=== PATIENT | male | born 1960 | race Asian ===

== ENCOUNTER 2021-07-08 12:27 | Emergency (ER) | payer MEDICARE, MEDICAID ==
[~2021-07-08] VITALS: Ht 167.6 cm; Wt 56.8 kg
[2021-07-08 14:44] LABS: BASOPHILS % (AUTO) 0.2 % (0.0-2.0); EOSINOPHILS % (AUTO) 0.5 % (1.0-6.0); HEMOGLOBIN 11.7 g/dL (13.5-17.5); LYMPHOCYTES # (AUTO) 0.8 K/uL (1.0-4.8); LYMPHOCYTES % (AUTO) 6.8 % (22.0-44.0); MEAN CORPUSCULAR HEMOGLOBIN 29.7 pg (26.0-34.0); MEAN CORPUSCULAR HGB CONC 33.3 G/dL (31.0-37.0); MEAN CORPUSCULAR VOLUME 89 fL (80-100); MONOCYTES # (AUTO) 0.5 K/uL (0.1-1.0); MONOCYTES % (AUTO) 4.6 % (2.0-9.0); NEUTROPHILS # (AUTO) 9.9 K/uL (1.8-7.7); PLATELET COUNT (AUTO) 277 K/uL (150-450); RED BLOOD CELL COUNT(AUTO) 3.93 MIL/uL (4.50-5.90); RED CELL DISTRIBUTION WIDTH 12.8 % (11.5-14.5)
[2021-07-08 14:58] LABS: NEUTROPHILS % (AUTO) 87.9 % (40.0-70.0)
[2021-07-08 15:13] LABS: COVID AG,FIA SOURCE NASOPHARYNGEAL
[2021-07-08 15:15] LABS: ANION GAP 10 mmol/L (8-16); CALCIUM, TOTAL 8.4 mg/dL (8.8-10.5); CARBON DIOXIDE 23 mmol/L (22-29); CHLORIDE 108 mmol/L (98-107); CREATININE 0.82 mg/dL (0.60-1.30); GLOMERULAR FILTR. RATE CALC > 60 mL/min (>60); GLUCOSE,RANDOM 107 mg/dL (70-110); SODIUM SERUM 141 mmol/L (136-145); UREA NITROGEN, BLOOD 10 mg/dL (7-18)
[2021-07-08 15:31] LABS: B-TYPE NATRIURETIC PEPTIDE 11 pg/mL (0-100)
[2021-07-08 15:39] LABS: ALANINE AMINOTRANSFERASE 24 U/L (12-78); ALBUMIN 2.8 g/dL (3.4-5.0); ALKALINE PHOSPHATASE 223 U/L (46-116); ASPARTATE AMINOTRANSFERASE 28 U/L (15-37); BILIRUBIN,TOTAL 0.1 mg/dL (0.1-1.0); CREATINE KINASE, TOTAL ONLY 197 U/L (39-308); TOTAL PROTEIN, SERUM 6.6 g/dL (6.4-8.2)
[2021-07-08 15:40] LABS: ABG BASE EXCESS -5.1 mmol/L (-2.0-3.0); ABG CARBOXYHEMOGLOBIN 0.5 % (0.0-1.5); ABG METHEMOGLOBIN 0.3 % (0.0-1.5); ABG OXYGEN CONTENT 15.9 mL/dL (15.0-23.0); ABG OXYGEN SATURATION 91.2 % (95.0-98.0); ABG OXYHEMOGLOBIN 90.5 % (94.0-100.0); ABG PCO2 31 mmHg (35-45); ABG PH 7.417 (7.35-7.450); ABG TOTAL HEMOGLOBIN 12.5 G/dL (12.0-18.0); O2 DEVICE,BLOOD GAS ROOM AIR (ROOM AIR); PO2, ARTERIAL BG 61.7 mmHg (79.0-87.0); SITE, BLOOD GAS RT RADIAL; SOURCE, BLOOD GAS ARTERIAL
[2021-07-08] MEDS ORDERED: AZITHROMYCIN 500 MG/NS 250 ML IV ONE (17:00)
[2021-07-08] MEDS ORDERED: ACETAMINOPHEN 500 MG TABLET PO ONE (17:00)
[2021-07-08] MEDS ORDERED: CefTRIAXone 1 GM/DEXTROSE 50 ML IV ONE (17:00)
[2021-07-08] MEDS ORDERED: SODIUM CHLORIDE 0.9% 100 ML ONE (17:10)
[2021-07-08] MEDS ORDERED: IOHEXOL 350 MG/ML 100 ML VIAL ONE (17:10)
[2021-07-08 18:03] VITALS: BP 134/85
== END 2021-07-08 18:55 | disposition left against medical advice (07) ==
LOC: EMS 12:33
DX: J96.01 Acute respiratory failure with hypoxia (principal); J18.9 Pneumonia, unspecified organism; F17.210 Nicotine dependence, cigarettes, uncomplicated; Z20.822 Contact with and (suspected) exposure to COVID-19
CPT/HCPCS: 71045; 71260; 80053; 82550; 82805; 83880; 84484; 85025; 85379; 87040; 87426; 93005; 96365; 99291; J0696; J7050; Q9967; U0003; 36415-L1; 36415-TC

== ENCOUNTER 2021-07-16 14:05 | Inpatient (IN) | payer MEDICARE, MEDICAID ==
[~2021-07-16] VITALS: Ht 177.8 cm; Wt 52.1 kg
[2021-07-16 14:45] LABS: ABG BASE EXCESS -3.7 mmol/L (-2.0-3.0); ABG CARBOXYHEMOGLOBIN 0.6 % (0.0-1.5); ABG METHEMOGLOBIN 0.1 % (0.0-1.5); ABG OXYGEN CONTENT 17.3 mL/dL (15.0-23.0); ABG OXYGEN SATURATION 91.2 % (95.0-98.0); ABG OXYHEMOGLOBIN 90.6 % (94.0-100.0); ABG PCO2 32 mmHg (35-45); ABG PH 7.428 (7.35-7.450); ABG TOTAL HEMOGLOBIN 13.6 G/dL (12.0-18.0); PO2, ARTERIAL BG 62.3 mmHg (79.0-87.0); SOURCE, BLOOD GAS ARTERIAL; TEMPERATURE, FAHRENHEIT, BG 98.6 FAHREN (96.0-98.6)
[2021-07-16] MEDS ORDERED: MethylPREDNISolone SOD SUCC 125 MG/2 ML VIAL IVP ONE (14:45)
[2021-07-16] MEDS ORDERED: ALBUTEROL SULFATE 5 MG/ML 20 ML NEB SOLN [BULK] NEB ONE (14:45)
[2021-07-16] MEDS ORDERED: IPRATROPIUM BROMIDE 0.5 MG/2.5 ML NEB SOLUTION NEB ONE (14:45)
[2021-07-16 14:46] LABS: SITE, BLOOD GAS LFT RADIAL
[2021-07-16 14:47] LABS: O2 DEVICE,BLOOD GAS NON REBREATHER (ROOM AIR)
[2021-07-16 14:54] LABS: BASOPHILS % (AUTO) 0.2 % (0.0-2.0); EOSINOPHILS % (AUTO) 0.1 % (1.0-6.0); HEMATOCRIT 38.7 % (41-53); HEMOGLOBIN 12.9 g/dL (13.5-17.5); LYMPHOCYTES # (AUTO) 0.3 K/uL (1.0-4.8); LYMPHOCYTES % (AUTO) 11.2 % (22.0-44.0); MEAN CORPUSCULAR HEMOGLOBIN 29.3 pg (26.0-34.0); MEAN CORPUSCULAR HGB CONC 33.3 G/dL (31.0-37.0); MEAN CORPUSCULAR VOLUME 88 fL (80-100); MONOCYTES # (AUTO) 0.3 K/uL (0.1-1.0); MONOCYTES % (AUTO) 12.8 % (2.0-9.0); NEUTROPHILS # (AUTO) 1.9 K/uL (1.8-7.7); NEUTROPHILS % (AUTO) 75.7 % (40.0-70.0); PLATELET COUNT (AUTO) 172 K/uL (150-450); RED BLOOD CELL COUNT(AUTO) 4.39 MIL/uL (4.50-5.90); RED CELL DISTRIBUTION WIDTH 13.2 % (11.5-14.5)
[2021-07-16 14:56] LABS: COVID AG,FIA SOURCE NASOPHARYNGEAL
[2021-07-16 15:14] LABS: ANION GAP 15 mmol/L (8-16); CALCIUM, TOTAL 7.8 mg/dL (8.8-10.5); CARBON DIOXIDE 20 mmol/L (22-29); CHLORIDE 99 mmol/L (98-107); CREATININE 1.17 mg/dL (0.60-1.30); GLOMERULAR FILTR. RATE CALC > 60 mL/min (>60); GLUCOSE,RANDOM 157 mg/dL (70-110); POTASSIUM 4.1 mmol/L (3.5-5.1); SODIUM SERUM 134 mmol/L (136-145); UREA NITROGEN, BLOOD 23 mg/dL (7-18)
[2021-07-16 15:37] LABS: B-TYPE NATRIURETIC PEPTIDE 21 pg/mL (0-100)
[2021-07-16 15:38] LABS: ALANINE AMINOTRANSFERASE 29 U/L (12-78); ALBUMIN 2.8 g/dL (3.4-5.0); ALKALINE PHOSPHATASE 171 U/L (46-116); ASPARTATE AMINOTRANSFERASE 76 U/L (15-37); BILIRUBIN,TOTAL 0.3 mg/dL (0.1-1.0); CREATINE KINASE, TOTAL ONLY 450 U/L (39-308); TOTAL PROTEIN, SERUM 6.9 g/dL (6.4-8.2)
[2021-07-16 15:44] LABS: INFLUENZA TYPE A NEGATIVE FOR TYPE A (NEGATIVE); INFLUENZA TYPE B NEGATIVE FOR TYPE B (NEGATIVE)
[2021-07-16] MEDS ORDERED: SODIUM CHLORIDE 0.9% 2,000 ML IV ONE (15:45)
[2021-07-16] MEDS ORDERED: AZITHROMYCIN 500 MG/NS 250 ML IV ONE (15:45)
[2021-07-16] MEDS ORDERED: CefTRIAXone 1 GM/DEXTROSE 50 ML IV ONE (15:45)
[2021-07-16 18:26] LABS: APPEARANCE,URINE CLEAR (CLEAR); BILIRUBIN,URINE NEGATIVE (NEGATIVE); GLUCOSE, URINE (UA) NEGATIVE (NEGATIVE); KETONES,URINE NEGATIVE (NEGATIVE); LEUKOCYTE ESTERASE ,URINE NEGATIVE (NEGATIVE); NITRATE,URINE NEGATIVE (NEGATIVE); OCCULT BLOOD,URINE NEGATIVE (NEGATIVE); PH,URINE 5.5 (5.0-8.0); PROTEIN,URINE SEE CONFIRM (NEGATIVE); UROBILINOGEN,URINE 0.2 mg/dL (<=1.0)
[2021-07-16 18:32] LABS: AMPHET/METH SCREEN,URINE NEGATIVE (NEGATIVE); BARBITURATE SCREEN, URINE NEGATIVE (NEGATIVE); BENZODIAZEPINES SCREEN,URINE NEGATIVE (NEGATIVE); CANNABINOID SCREEN,URINE NEGATIVE (NEGATIVE); COCAINE SCREEN,URINE NEGATIVE (NEGATIVE); METHADONE SCREEN, URINE NEGATIVE (NEGATIVE); OPIATE SCREEN,URINE NEGATIVE (NEGATIVE)
[2021-07-16 18:34] LABS: PHENCYCLIDINE SCREEN,URINE NEGATIVE (NEGATIVE)
[2021-07-16 18:36] LABS: SULFOSALICYLIC ACID,URINE 1+ (Negative)
[2021-07-16 18:37] LABS: BACTERIA,URINE Rare /HPF (None Seen); RBC,URINE 0-2 /HPF (0-2); SQUAMOUS EPITHELIAL CELL,UR Rare /LPF (None Seen); WBC,URINE 0-2 /HPF (0-5)
[2021-07-16] MEDS: DEXAMETHASONE SOD PHOS 4 MG/ML VIAL IVP SCH (20:01)
[2021-07-16] MEDS ORDERED: ONDANSETRON HCL 4 MG/2 ML VIAL IVP PRN (20:15)
[2021-07-16] MEDS ORDERED: ACETAMINOPHEN 325 MG TABLET PO PRN (20:15)
[2021-07-16] MEDS: PIPERACILLIN/TAZO 3.375 GM/D5W 50 ML IV SCH (22:15)
[2021-07-17] MEDS ORDERED: MIDAZOLAM HCL 2 MG/2 ML VIAL IVP ONE (00:45)
[2021-07-17 00:49] LABS: ABG BASE EXCESS -20.3 mmol/L (-2.0-3.0); ABG CARBOXYHEMOGLOBIN 0.3 % (0.0-1.5); ABG METHEMOGLOBIN 0.4 % (0.0-1.5); ABG OXYHEMOGLOBIN 79.4 % (94.0-100.0); ABG TOTAL HEMOGLOBIN 14.3 G/dL (12.0-18.0); PO2, ARTERIAL BG 71.7 mmHg (79.0-87.0); SOURCE, BLOOD GAS ARTERIAL; TEMPERATURE, FAHRENHEIT, BG 98.6 FAHREN (96.0-98.6)
[2021-07-17 00:51] LABS: ABG HCO3 9.2 mmol/L (22.0-26.0); ABG PCO2 71 mmHg (35-45); O2 DEVICE,BLOOD GAS VENTILATOR (ROOM AIR); SITE, BLOOD GAS RT RADIAL; VT, ABG 450 ml
[2021-07-17 00:52] LABS: PEEP,BG 5 cm H2O; SPONTANEOUS VT, BG 450 ml
[2021-07-17] MEDS ORDERED: ADENOSINE 3 MG/ML 2 ML VIAL ONE (00:54)
[2021-07-17] MEDS ORDERED: ADENOSINE 3 MG/ML 2 ML VIAL IVP ONE ×2 (01:00)
[2021-07-17] MEDS ORDERED: SODIUM CHLORIDE 0.9% 1,000 ML IV ONE (01:00)
[2021-07-17] MEDS ORDERED: LORazepam 2 MG/ML VIAL ONE (01:05)
[2021-07-17] MEDS ORDERED: LORazepam 2 MG/ML VIAL IVP ONE ×2 (01:15→06:15)
[2021-07-17 02:12] LABS: SPECIMENTYPE,BODY FLUID THORACENTESIS
[2021-07-17 02:35] LABS: ABG BASE EXCESS -15.4 mmol/L (-2.0-3.0); ABG CARBOXYHEMOGLOBIN 0.4 % (0.0-1.5); ABG HCO3 13.4 mmol/L (22.0-26.0); ABG OXYGEN CONTENT 20.5 mL/dL (15.0-23.0); ABG OXYGEN SATURATION 98.5 % (95.0-98.0); ABG OXYHEMOGLOBIN 98.1 % (94.0-100.0); ABG PCO2 39 mmHg (35-45); ABG TOTAL HEMOGLOBIN 14.7 G/dL (12.0-18.0); PO2, ARTERIAL BG 150.9 mmHg (79.0-87.0); SOURCE, BLOOD GAS ARTERIAL; TEMPERATURE, FAHRENHEIT, BG 97.3 FAHREN (96.0-98.6)
[2021-07-17 02:37] LABS: ABG PH 7.155 (7.35-7.450); O2 DEVICE,BLOOD GAS VENTILATOR (ROOM AIR); PEEP,BG 5 cm H2O; SITE, BLOOD GAS ARTERIAL LINE; SPONTANEOUS VT, BG 431 ml; VT, ABG 500 ml
[2021-07-17] MEDS: PROPOFOL 1000 MG/ISO-OSM 100 ML IV PRN ×4 (02:38→23:53)
[2021-07-17] MEDS ORDERED: SODIUM BICARBONATE [ADULT] 8.4% 50 MEQ/50 ML SYRINGE IVP ONE (02:45)
[2021-07-17 04:39] LABS: APPEARANCE,SPUN,BODY FLUID CLEAR (CLEAR); APPEARANCE,UNSPUN,BODY FLUID CLOUDY (CLEAR); COLOR,BODY FLUID RED (LT YELLOW); TOTAL VOLUME,BODY FLUID 5 mL; WBC, BODY FLUID 16000 /cu. mm.
[2021-07-17 04:40] LABS: BASOPHILS,BODY FLUID 0 %; EOSINOPHILS,BF (ANAL) 0 %; LYMPHOCYTES,BODY FLUID 88 %; MONOCYTES,BODY FLUID 0 %; NEUTROPHILS,BODY FLUID 12 %
[2021-07-17] MEDS: PIPERACILLIN/TAZO 3.375 GM/D5W 50 ML IV SCH ×4 (04:55→23:53)
[2021-07-17 05:02] LABS: LACTIC ACID 8.5 mmol/L (0.4-2.0)
[2021-07-17] MEDS: FentaNYL CIT 1000MCG/0.9% NACL 100 ML IV PRN ×2 (05:35→17:20)
[2021-07-17] MEDS: SODIUM BICARBONATE 100 MEQ in DEXTROSE 5%-WATER 1,000 ML IV SCH ×2 (05:35→20:17)
[2021-07-17] MEDS ORDERED: SODIUM CHLORIDE 0.9% 500 ML IV ONE (06:00)
[2021-07-17 06:47] LABS: ABG BASE EXCESS -6.6 mmol/L (-2.0-3.0); ABG HCO3 19.5 mmol/L (22.0-26.0); ABG METHEMOGLOBIN 0.4 % (0.0-1.5); ABG OXYGEN SATURATION 95.1 % (95.0-98.0); ABG OXYHEMOGLOBIN 94.7 % (94.0-100.0); ABG PCO2 40 mmHg (35-45); ABG PH 7.313 (7.35-7.450); PO2, ARTERIAL BG 83.1 mmHg (79.0-87.0); SOURCE, BLOOD GAS ARTERIAL; TEMPERATURE, FAHRENHEIT, BG 98.6 FAHREN (96.0-98.6)
[2021-07-17 06:50] LABS: O2 DEVICE,BLOOD GAS VENTILATOR (ROOM AIR); PEEP,BG 5 cm H2O; SITE, BLOOD GAS ARTERIAL LINE; VT, ABG 500 ml
[2021-07-17 06:51] LABS: SPONTANEOUS VT, BG 455 ml
[2021-07-17] MEDS ORDERED: LevETIRAcetam 1,000 MG in DEXTROSE 5%-WATER 100 ML IV ONE (07:00)
[2021-07-17 07:47] LABS: HEMOGLOBIN 13.7 g/dL (13.5-17.5); MEAN CORPUSCULAR HEMOGLOBIN 29.9 pg (26.0-34.0); MEAN CORPUSCULAR HGB CONC 33.5 G/dL (31.0-37.0); MEAN CORPUSCULAR VOLUME 89 fL (80-100); PLATELET COUNT (AUTO) 115 K/uL (150-450); RED BLOOD CELL COUNT(AUTO) 4.59 MIL/uL (4.50-5.90); RED CELL DISTRIBUTION WIDTH 13.1 % (11.5-14.5)
[2021-07-17 07:55] LABS: CALCIUM, TOTAL 6.7 mg/dL (8.8-10.5); CREATININE 1.25 mg/dL (0.60-1.30); POTASSIUM 3.9 mmol/L (3.5-5.1)
[2021-07-17] MEDS: HEPARIN SODIUM,PORCINE 5,000 UNITS/ML VIAL SQ SCH ×4 (08:00→23:53)
[2021-07-17 08:01] LABS: ALBUMIN 1.7 g/dL (3.4-5.0); BILIRUBIN,TOTAL 0.3 mg/dL (0.1-1.0); INR 1.2 (0.9-1.1); PROTHROMBIN TIME 12.4 SEC (9.4-11.6); TOTAL PROTEIN, SERUM 4.7 g/dL (6.4-8.2)
[2021-07-17 08:15] LABS: BAND NEUTROPHILS % (MANUAL) 52 % (0-5); LYMPHOCYTES % (MANUAL) 10 % (22-44); MONOCYTES % (MANUAL) 3 % (2-9); SEGMENTED NEUTROPHILS % 35 % (40-70)
[2021-07-17] MEDS: LevETIRAcetam 500 MG in DEXTROSE 5%-WATER 100 ML IV SCH ×2 (09:09→20:17)
[2021-07-17] MEDS: DEXAMETHASONE SOD PHOS 4 MG/ML VIAL IVP SCH (09:09)
[2021-07-17] MEDS: NOREPINEPHRINE 4 MG/D5%-WATER 250 ML IV PRN ×2 (09:36→20:13)
[2021-07-17 10:09] LABS: APPEARANCE,URINE CLEAR (CLEAR); BILIRUBIN,URINE NEGATIVE (NEGATIVE); GLUCOSE, URINE (UA) NEGATIVE (NEGATIVE); KETONES,URINE TRACE mg/dL (NEGATIVE); LEUKOCYTE ESTERASE ,URINE NEGATIVE (NEGATIVE); NITRATE,URINE NEGATIVE (NEGATIVE); OCCULT BLOOD,URINE LARGE (NEGATIVE); PH,URINE 5.5 (5.0-8.0); PROTEIN,URINE SEE CONFIRM (NEGATIVE); UROBILINOGEN,URINE 0.2 mg/dL (<=1.0)
[2021-07-17 10:19] LABS: BACTERIA,URINE Many /HPF (None Seen); RBC,URINE 26-50 /HPF (0-2); URIC ACID CRYSTALS,URINE Moderate /LPF (None Seen); WBC,URINE 0-2 /HPF (0-5)
[2021-07-17 10:20] LABS: FINE GRANULAR CASTS,URINE 0-2 /LPF (None Seen)
[2021-07-17 10:31] LABS: C-REACTIVE PROTEIN QUANT 3.14 mg/dL (0.00-0.30)
[2021-07-17] MEDS ORDERED: LevETIRAcetam 500 MG in DEXTROSE 5%-WATER 100 ML IV SCH (12:15)
[2021-07-17] MEDS: MIDAZOLAM HCL 100 MG in SODIUM CHLORIDE 0.9% 180 ML IV PRN (12:50)
[2021-07-17] MEDS ORDERED: HEPARIN SODIUM 1000 UNITS/NS 500 ML ONE (13:35)
[2021-07-17] MEDS ORDERED: CefTRIAXone 1 GM/DEXTROSE 50 ML IV SCH (14:00)
[2021-07-17] MEDS ORDERED: REMDESIVIR 200 MG in SODIUM CHLORIDE 0.9% 250 ML IV ONE (15:00)
[2021-07-17] MEDS ORDERED: SODIUM CHLORIDE 0.9% 250 ML IV ONE ×2 (15:34→16:24)
[2021-07-17 16:00] VITALS: BP 104/58
[2021-07-17] MEDS: DOXYCYCLINE HYCLATE 100 MG in DEXTROSE 5%-WATER 100 ML IV SCH (16:21)
[2021-07-18] VITALS (10 sets, daily range): BP systolic 103–124; BP diastolic 48–60
[2021-07-18] MEDS: NOREPINEPHRINE 4 MG/D5%-WATER 250 ML IV PRN ×3 (02:00→16:09)
[2021-07-18] MEDS: DOXYCYCLINE HYCLATE 100 MG in DEXTROSE 5%-WATER 100 ML IV SCH ×2 (04:14→15:18)
[2021-07-18] MEDS: PROPOFOL 1000 MG/ISO-OSM 100 ML IV PRN ×3 (05:12→20:16)
[2021-07-18] MEDS: MIDAZOLAM HCL 100 MG in SODIUM CHLORIDE 0.9% 180 ML IV PRN ×2 (05:13→17:59)
[2021-07-18] MEDS: PIPERACILLIN/TAZO 3.375 GM/D5W 50 ML IV SCH ×4 (06:11→23:48)
[2021-07-18 06:58] LABS: ALBUMIN 1.6 g/dL (3.4-5.0); BILIRUBIN,TOTAL 0.5 mg/dL (0.1-1.0); C-REACTIVE PROTEIN QUANT 12.52 mg/dL (0.00-0.30); CALCIUM, TOTAL 6.8 mg/dL (8.8-10.5); CREATININE 1.31 mg/dL (0.60-1.30); MAGNESIUM 1.7 mg/dL (1.80-2.40); PHOSPHORUS 2.5 mg/dL (2.5-4.9); POTASSIUM 4.1 mmol/L (3.5-5.1); TOTAL PROTEIN, SERUM 4.8 g/dL (6.4-8.2)
[2021-07-18] MEDS: HEPARIN SODIUM,PORCINE 5,000 UNITS/ML VIAL SQ SCH ×3 (08:01→23:48)
[2021-07-18] MEDS: LevETIRAcetam 500 MG in DEXTROSE 5%-WATER 100 ML IV SCH ×2 (08:01→20:14)
[2021-07-18] MEDS: DEXAMETHASONE SOD PHOS 4 MG/ML VIAL IVP SCH (08:01)
[2021-07-18] MEDS: SODIUM BICARBONATE 100 MEQ in DEXTROSE 5%-WATER 1,000 ML IV SCH (09:30)
[2021-07-18] MEDS: FentaNYL CIT 1000MCG/0.9% NACL 100 ML IV PRN ×2 (09:31→23:50)
[2021-07-18] MEDS: DEXTROSE 5%-0.9% SODIUM CHL 1,000 ML IV SCH ×2 (11:01→23:48)
[2021-07-18] MEDS: FAMOTIDINE 10 MG/ML 2 ML VIAL IVP SCH (14:06)
[2021-07-18] MEDS: REMDESIVIR 100 MG in SODIUM CHLORIDE 0.9% 250 ML IV SCH (16:39)
[2021-07-18] MEDS ORDERED: SODIUM BICARBONATE [ADULT] 8.4% 50 MEQ/50 ML SYRINGE IVP ONE (18:10)
[2021-07-18] MEDS ORDERED: EPINEPHrine 1:10,000 [1 MG/10 ML] SYRINGE IVP ONE (18:10)
[2021-07-19] VITALS: BP 126/58
[2021-07-19] MEDS: NOREPINEPHRINE 4 MG/D5%-WATER 250 ML IV PRN ×2 (01:33→09:40)
[2021-07-19 02:00] VITALS: BP 136/64
[2021-07-19] MEDS: DOXYCYCLINE HYCLATE 100 MG in DEXTROSE 5%-WATER 100 ML IV SCH ×2 (03:58→16:10)
[2021-07-19 04:00] VITALS: BP_SYST 133; BP_SYST 134; BP_DIAS 62
[2021-07-19] MEDS ORDERED: SODIUM CHLORIDE 0.9% 250 ML IV ONE (04:04)
[2021-07-19] MEDS: PIPERACILLIN/TAZO 3.375 GM/D5W 50 ML IV SCH ×4 (05:29→23:30)
[2021-07-19 05:32] LABS: CALCIUM, TOTAL 7.2 mg/dL (8.8-10.5); CREATININE 1.35 mg/dL (0.60-1.30); MAGNESIUM 1.9 mg/dL (1.80-2.40); PHOSPHORUS 2.5 mg/dL (2.5-4.9)
[2021-07-19 06:00] VITALS: BP 135/57
[2021-07-19 06:11] LABS: ALBUMIN 1.5 g/dL (3.4-5.0); BILIRUBIN,TOTAL 0.5 mg/dL (0.1-1.0); C-REACTIVE PROTEIN QUANT 13.17 mg/dL (0.00-0.30); CALCIUM, TOTAL 7.4 mg/dL (8.8-10.5); CREATININE 1.33 mg/dL (0.60-1.30); TOTAL PROTEIN, SERUM 4.8 g/dL (6.4-8.2)
[2021-07-19] MEDS: HEPARIN SODIUM,PORCINE 5,000 UNITS/ML VIAL SQ SCH ×3 (08:46→23:30)
[2021-07-19] MEDS: DEXAMETHASONE SOD PHOS 4 MG/ML VIAL IVP SCH (08:46)
[2021-07-19] MEDS: LevETIRAcetam 500 MG in DEXTROSE 5%-WATER 100 ML IV SCH ×2 (08:46→22:19)
[2021-07-19] MEDS: DEXTROSE 5%-0.9% SODIUM CHL 1,000 ML IV SCH (14:20)
[2021-07-19] MEDS: REMDESIVIR 100 MG in SODIUM CHLORIDE 0.9% 250 ML IV SCH (16:56)
[2021-07-19 20:00] VITALS: BP_SYST 124; BP_SYST 133; BP_DIAS 56; BP_DIAS 58
[2021-07-19 22:00] VITALS: BP 117/60
[2021-07-20] VITALS: BP_SYST 126; BP_SYST 140; BP_DIAS 62; BP_DIAS 70
[2021-07-20 04:00] VITALS: BP_SYST 116; BP_SYST 124; BP_DIAS 58; BP_DIAS 60
[2021-07-20] MEDS: DEXTROSE 5%-0.9% SODIUM CHL 1,000 ML IV SCH ×2 (05:00→20:22)
[2021-07-20] MEDS: DOXYCYCLINE HYCLATE 100 MG in DEXTROSE 5%-WATER 100 ML IV SCH ×2 (05:00→17:36)
[2021-07-20] MEDS: PIPERACILLIN/TAZO 3.375 GM/D5W 50 ML IV SCH ×3 (05:00→18:07)
[2021-07-20 06:00] VITALS: BP 124/60
[2021-07-20 06:54] LABS: ALBUMIN 1.3 g/dL (3.4-5.0); BILIRUBIN,TOTAL 0.5 mg/dL (0.1-1.0); C-REACTIVE PROTEIN QUANT 8.68 mg/dL (0.00-0.30); CALCIUM, TOTAL 7.1 mg/dL (8.8-10.5); CREATININE 1.26 mg/dL (0.60-1.30); POTASSIUM 3.9 mmol/L (3.5-5.1); TOTAL PROTEIN, SERUM 4.2 g/dL (6.4-8.2)
[2021-07-20] MEDS: FAMOTIDINE 10 MG/ML 2 ML VIAL IVP SCH (10:26)
[2021-07-20] MEDS: HEPARIN SODIUM,PORCINE 5,000 UNITS/ML VIAL SQ SCH ×2 (10:27→17:39)
[2021-07-20] MEDS: DEXAMETHASONE SOD PHOS 4 MG/ML VIAL IVP SCH (10:27)
[2021-07-20] MEDS: LevETIRAcetam 500 MG in DEXTROSE 5%-WATER 100 ML IV SCH ×2 (10:27→20:21)
[2021-07-20 12:39] LABS: BASOPHILS % (AUTO) 0.1 % (0.0-2.0); EOSINOPHILS % (AUTO) 0 % (1.0-6.0); HEMATOCRIT 35.3 % (41-53); HEMOGLOBIN 11.8 g/dL (13.5-17.5); LYMPHOCYTES # (AUTO) 0.5 K/uL (1.0-4.8); LYMPHOCYTES % (AUTO) 2.9 % (22.0-44.0); MEAN CORPUSCULAR HEMOGLOBIN 29.2 pg (26.0-34.0); MEAN CORPUSCULAR HGB CONC 33.5 G/dL (31.0-37.0); MEAN CORPUSCULAR VOLUME 87 fL (80-100); MONOCYTES # (AUTO) 0.7 K/uL (0.1-1.0); MONOCYTES % (AUTO) 4.1 % (2.0-9.0); NEUTROPHILS # (AUTO) 15.5 K/uL (1.8-7.7); NEUTROPHILS % (AUTO) 92.9 % (40.0-70.0); PLATELET COUNT (AUTO) 101 K/uL (150-450); RED BLOOD CELL COUNT(AUTO) 4.04 MIL/uL (4.50-5.90); RED CELL DISTRIBUTION WIDTH 13.4 % (11.5-14.5)
[2021-07-20] MEDS ORDERED: SODIUM CHLORIDE 0.9% 500 ML IV ONE (17:05)
[2021-07-20] MEDS: REMDESIVIR 100 MG in SODIUM CHLORIDE 0.9% 250 ML IV SCH (17:38)
[2021-07-20 20:00] VITALS: BP 131/60
[2021-07-21] VITALS: BP 146/66
[2021-07-21] MEDS: PIPERACILLIN/TAZO 3.375 GM/D5W 50 ML IV SCH ×4 (01:33→18:06)
[2021-07-21] MEDS: HEPARIN SODIUM,PORCINE 5,000 UNITS/ML VIAL SQ SCH ×3 (01:34→16:49)
[2021-07-21 04:00] VITALS: BP 154/73
[2021-07-21 05:08] LABS: BASOPHILS % (AUTO) 0.1 % (0.0-2.0); EOSINOPHILS % (AUTO) 0 % (1.0-6.0); HEMATOCRIT 35.5 % (41-53); HEMOGLOBIN 11.9 g/dL (13.5-17.5); LYMPHOCYTES # (AUTO) 0.4 K/uL (1.0-4.8); LYMPHOCYTES % (AUTO) 2.4 % (22.0-44.0); MEAN CORPUSCULAR HEMOGLOBIN 29.4 pg (26.0-34.0); MEAN CORPUSCULAR HGB CONC 33.4 G/dL (31.0-37.0); MEAN CORPUSCULAR VOLUME 88 fL (80-100); MONOCYTES % (AUTO) 5.9 % (2.0-9.0); NEUTROPHILS # (AUTO) 15.1 K/uL (1.8-7.7); PLATELET COUNT (AUTO) 107 K/uL (150-450); RED BLOOD CELL COUNT(AUTO) 4.04 MIL/uL (4.50-5.90); RED CELL DISTRIBUTION WIDTH 13.6 % (11.5-14.5)
[2021-07-21 05:13] LABS: NEUTROPHILS % (AUTO) 91.6 % (40.0-70.0)
[2021-07-21 05:16] LABS: ALBUMIN 1.4 g/dL (3.4-5.0); BILIRUBIN,TOTAL 0.6 mg/dL (0.1-1.0); CALCIUM, TOTAL 7.2 mg/dL (8.8-10.5); CREATININE 1.27 mg/dL (0.60-1.30); POTASSIUM 3.8 mmol/L (3.5-5.1); TOTAL PROTEIN, SERUM 4.3 g/dL (6.4-8.2)
[2021-07-21] MEDS: DOXYCYCLINE HYCLATE 100 MG in DEXTROSE 5%-WATER 100 ML IV SCH ×2 (06:05→15:43)
[2021-07-21 08:00] VITALS: BP 138/62
[2021-07-21] MEDS: LevETIRAcetam 500 MG in DEXTROSE 5%-WATER 100 ML IV SCH ×2 (08:35→21:43)
[2021-07-21] MEDS: PROPOFOL 1000 MG/ISO-OSM 100 ML IV PRN ×2 (08:35→14:37)
[2021-07-21] MEDS: DEXAMETHASONE SOD PHOS 4 MG/ML VIAL IVP SCH (08:36)
[2021-07-21] MEDS: DEXTROSE 5%-0.9% SODIUM CHL 1,000 ML IV SCH (11:03)
[2021-07-21 12:00] VITALS: BP 133/59
[2021-07-21 15:05] LABS: ABG BASE EXCESS -2.4 mmol/L (-2.0-3.0); ABG CARBOXYHEMOGLOBIN 0.4 % (0.0-1.5); ABG HCO3 23.4 mmol/L (22.0-26.0); ABG METHEMOGLOBIN 0.3 % (0.0-1.5); ABG OXYGEN CONTENT 18.7 mL/dL (15.0-23.0); ABG OXYGEN SATURATION 98.8 % (95.0-98.0); ABG OXYHEMOGLOBIN 98.1 % (94.0-100.0); ABG PCO2 30 mmHg (35-45); ABG PH 7.472 (7.35-7.450); ABG TOTAL HEMOGLOBIN 13.4 G/dL (12.0-18.0); PO2, ARTERIAL BG 136.5 mmHg (79.0-87.0); SOURCE, BLOOD GAS ARTERIAL
[2021-07-21 15:08] LABS: ABG A-A DIFF O2 114.8 mmHg (10-20.0); O2 DEVICE,BLOOD GAS VENTILATOR (ROOM AIR); SITE, BLOOD GAS ARTERIAL LINE; VT, ABG 500 ml
[2021-07-21 15:09] LABS: PEEP,BG 5 cm H2O
[2021-07-21 16:00] VITALS: BP 123/63
[2021-07-21] MEDS: REMDESIVIR 100 MG in SODIUM CHLORIDE 0.9% 250 ML IV SCH (16:48)
[2021-07-21 20:00] VITALS: BP 166/85
[2021-07-21] MEDS ORDERED: FentaNYL CITRATE PF 100 MCG/2 ML VIAL IVP ONE (20:00)
[2021-07-21] MEDS: FAMOTIDINE 10 MG/ML 2 ML VIAL IVP SCH (20:59)
[2021-07-22] VITALS (7 sets, daily range): BP systolic 137–162; BP diastolic 68–79
[2021-07-22] MEDS: DEXTROSE 5%-0.9% SODIUM CHL 1,000 ML IV SCH ×2 (00:38→16:03)
[2021-07-22] MEDS: PIPERACILLIN/TAZO 3.375 GM/D5W 50 ML IV SCH ×4 (00:38→18:44)
[2021-07-22] MEDS: HEPARIN SODIUM,PORCINE 5,000 UNITS/ML VIAL SQ SCH ×3 (00:38→16:03)
[2021-07-22] MEDS: DOXYCYCLINE HYCLATE 100 MG in DEXTROSE 5%-WATER 100 ML IV SCH ×2 (03:34→16:04)
[2021-07-22] MEDS: PROPOFOL 1000 MG/ISO-OSM 100 ML IV PRN ×2 (04:44→22:01)
[2021-07-22 06:01] LABS: BASOPHILS % (AUTO) 0.1 % (0.0-2.0); EOSINOPHILS % (AUTO) 0 % (1.0-6.0); HEMATOCRIT 39.5 % (41-53); HEMOGLOBIN 13.4 g/dL (13.5-17.5); LYMPHOCYTES # (AUTO) 0.7 K/uL (1.0-4.8); LYMPHOCYTES % (AUTO) 4.1 % (22.0-44.0); MEAN CORPUSCULAR HEMOGLOBIN 29.7 pg (26.0-34.0); MEAN CORPUSCULAR HGB CONC 33.8 G/dL (31.0-37.0); MEAN CORPUSCULAR VOLUME 88 fL (80-100); MONOCYTES # (AUTO) 1.5 K/uL (0.1-1.0); MONOCYTES % (AUTO) 9.4 % (2.0-9.0); PLATELET COUNT (AUTO) 121 K/uL (150-450); RED CELL DISTRIBUTION WIDTH 13.2 % (11.5-14.5)
[2021-07-22 06:07] LABS: NEUTROPHILS % (AUTO) 86.4 % (40.0-70.0)
[2021-07-22] MEDS: DEXAMETHASONE SOD PHOS 4 MG/ML VIAL IVP SCH (08:04)
[2021-07-22] MEDS: FAMOTIDINE 10 MG/ML 2 ML VIAL IVP SCH ×2 (08:04→22:00)
[2021-07-22] MEDS: LevETIRAcetam 500 MG in DEXTROSE 5%-WATER 100 ML IV SCH ×2 (08:04→20:43)
[2021-07-22 08:06] LABS: ABG BASE EXCESS -3.9 mmol/L (-2.0-3.0); ABG CARBOXYHEMOGLOBIN 0.2 % (0.0-1.5); ABG HCO3 22.1 mmol/L (22.0-26.0); ABG METHEMOGLOBIN 0.3 % (0.0-1.5); ABG OXYGEN CONTENT 17.2 mL/dL (15.0-23.0); ABG OXYHEMOGLOBIN 97.5 % (94.0-100.0); ABG PCO2 29 mmHg (35-45); ABG PH 7.457 (7.35-7.450); ABG TOTAL HEMOGLOBIN 12.4 G/dL (12.0-18.0); SOURCE, BLOOD GAS ARTERIAL; TEMPERATURE, FAHRENHEIT, BG 98.6 FAHREN (96.0-98.6)
[2021-07-22 08:07] LABS: O2 DEVICE,BLOOD GAS VENTILATOR (ROOM AIR); PEEP,BG 5 cm H2O; SITE, BLOOD GAS ARTERIAL LINE; VT, ABG 500 ml
[2021-07-22] MEDS ORDERED: SODIUM CHLORIDE 0.9% 250 ML IV ONE (16:30)
[2021-07-23] VITALS (9 sets, daily range): BP systolic 134–176; BP diastolic 65–85
[2021-07-23] MEDS: HEPARIN SODIUM,PORCINE 5,000 UNITS/ML VIAL SQ SCH ×4 (00:18→23:31)
[2021-07-23] MEDS: PIPERACILLIN/TAZO 3.375 GM/D5W 50 ML IV SCH ×5 (00:18→23:32)
[2021-07-23] MEDS: DOXYCYCLINE HYCLATE 100 MG in DEXTROSE 5%-WATER 100 ML IV SCH ×2 (04:06→15:24)
[2021-07-23] MEDS ORDERED: SODIUM CHLORIDE 0.9% 250 ML IV ONE ×2 (05:17→22:49)
[2021-07-23] MEDS: DEXTROSE 5%-0.9% SODIUM CHL 1,000 ML IV SCH ×2 (05:25→19:35)
[2021-07-23] MEDS: PROPOFOL 1000 MG/ISO-OSM 100 ML IV PRN ×2 (05:27→16:44)
[2021-07-23 05:38] LABS: BASOPHILS % (AUTO) 0.2 % (0.0-2.0); EOSINOPHILS % (AUTO) 0.2 % (1.0-6.0); HEMATOCRIT 36.5 % (41-53); HEMOGLOBIN 12.2 g/dL (13.5-17.5); LYMPHOCYTES # (AUTO) 0.7 K/uL (1.0-4.8); LYMPHOCYTES % (AUTO) 5.1 % (22.0-44.0); MEAN CORPUSCULAR HEMOGLOBIN 29.4 pg (26.0-34.0); MEAN CORPUSCULAR HGB CONC 33.5 G/dL (31.0-37.0); MEAN CORPUSCULAR VOLUME 88 fL (80-100); MONOCYTES # (AUTO) 1.6 K/uL (0.1-1.0); NEUTROPHILS # (AUTO) 10.7 K/uL (1.8-7.7); NEUTROPHILS % (AUTO) 82.5 % (40.0-70.0); PLATELET COUNT (AUTO) 116 K/uL (150-450); RED BLOOD CELL COUNT(AUTO) 4.15 MIL/uL (4.50-5.90); RED CELL DISTRIBUTION WIDTH 13.6 % (11.5-14.5)
[2021-07-23 05:53] LABS: ALANINE AMINOTRANSFERASE 79 U/L (12-78); ALBUMIN 1.4 g/dL (3.4-5.0); ALKALINE PHOSPHATASE 125 U/L (46-116); ANION GAP 6 mmol/L (8-16); ASPARTATE AMINOTRANSFERASE 75 U/L (15-37); BILIRUBIN,TOTAL 0.5 mg/dL (0.1-1.0); C-REACTIVE PROTEIN QUANT 1.35 mg/dL (0.00-0.30); CALCIUM, TOTAL 6.9 mg/dL (8.8-10.5); CARBON DIOXIDE 23 mmol/L (22-29); CHLORIDE 115 mmol/L (98-107); CREATININE 0.85 mg/dL (0.60-1.30); GLOMERULAR FILTR. RATE CALC > 60 mL/min (>60); GLUCOSE,RANDOM 152 mg/dL (70-110); POTASSIUM 3.5 mmol/L (3.5-5.1); SODIUM SERUM 144 mmol/L (136-145); TOTAL PROTEIN, SERUM 4.2 g/dL (6.4-8.2); UREA NITROGEN, BLOOD 32 mg/dL (7-18)
[2021-07-23] MEDS: LevETIRAcetam 500 MG in DEXTROSE 5%-WATER 100 ML IV SCH ×2 (09:32→20:41)
[2021-07-23] MEDS: FAMOTIDINE 10 MG/ML 2 ML VIAL IVP SCH ×2 (09:32→21:03)
[2021-07-23] MEDS: DEXAMETHASONE SOD PHOS 4 MG/ML VIAL IVP SCH (09:32)
[2021-07-23] MEDS ORDERED: SODIUM CHLORIDE 0.9% 500 ML IV ONE (22:49)
[2021-07-24] VITALS: BP 114/72
[2021-07-24 04:00] VITALS: BP 106/67
[2021-07-24] MEDS: PROPOFOL 1000 MG/ISO-OSM 100 ML IV PRN ×2 (04:14→16:15)
[2021-07-24] MEDS: DOXYCYCLINE HYCLATE 100 MG in DEXTROSE 5%-WATER 100 ML IV SCH ×2 (04:25→16:14)
[2021-07-24] MEDS: PIPERACILLIN/TAZO 3.375 GM/D5W 50 ML IV SCH ×4 (06:18→23:48)
[2021-07-24 06:40] LABS: ANION GAP 11 mmol/L (8-16); CALCIUM, TOTAL 7.3 mg/dL (8.8-10.5); CARBON DIOXIDE 23 mmol/L (22-29); CHLORIDE 113 mmol/L (98-107); CREATININE 0.85 mg/dL (0.60-1.30); GLOMERULAR FILTR. RATE CALC > 60 mL/min (>60); GLUCOSE,RANDOM 149 mg/dL (70-110); POTASSIUM 4.1 mmol/L (3.5-5.1); SODIUM SERUM 147 mmol/L (136-145); UREA NITROGEN, BLOOD 30 mg/dL (7-18)
[2021-07-24 06:42] LABS: BASOPHILS % (AUTO) 0.2 % (0.0-2.0); EOSINOPHILS % (AUTO) 0.9 % (1.0-6.0); HEMOGLOBIN 11.8 g/dL (13.5-17.5); LYMPHOCYTES # (AUTO) 0.6 K/uL (1.0-4.8); LYMPHOCYTES % (AUTO) 5.3 % (22.0-44.0); MEAN CORPUSCULAR HEMOGLOBIN 29.6 pg (26.0-34.0); MEAN CORPUSCULAR HGB CONC 33.8 G/dL (31.0-37.0); MEAN CORPUSCULAR VOLUME 88 fL (80-100); MONOCYTES # (AUTO) 1.2 K/uL (0.1-1.0); MONOCYTES % (AUTO) 9.8 % (2.0-9.0); NEUTROPHILS # (AUTO) 9.9 K/uL (1.8-7.7); NEUTROPHILS % (AUTO) 83.8 % (40.0-70.0); PLATELET COUNT (AUTO) 122 K/uL (150-450); RED CELL DISTRIBUTION WIDTH 13.6 % (11.5-14.5)
[2021-07-24 08:00] VITALS: BP 104/67
[2021-07-24] MEDS: HEPARIN SODIUM,PORCINE 5,000 UNITS/ML VIAL SQ SCH ×3 (08:52→23:48)
[2021-07-24] MEDS: LevETIRAcetam 500 MG in DEXTROSE 5%-WATER 100 ML IV SCH ×2 (08:53→21:01)
[2021-07-24] MEDS: FAMOTIDINE 10 MG/ML 2 ML VIAL IVP SCH ×2 (08:54→21:01)
[2021-07-24] MEDS: DEXAMETHASONE SOD PHOS 4 MG/ML VIAL IVP SCH (08:54)
[2021-07-24] MEDS: DEXTROSE 5%-0.9% SODIUM CHL 1,000 ML IV SCH (08:55)
[2021-07-24] MEDS: DEXTROSE 5%-WATER 1,000 ML IV SCH (11:30)
[2021-07-24 12:00] VITALS: BP 97/64
[2021-07-24 16:00] VITALS: BP 106/68
[2021-07-24] MEDS ORDERED: SODIUM CHLORIDE 0.9% 250 ML IV ONE (23:08)
[2021-07-25] VITALS: BP 112/68
[2021-07-25] MEDS: DEXTROSE 5%-WATER 1,000 ML IV SCH (01:09)
[2021-07-25] MEDS: PROPOFOL 1000 MG/ISO-OSM 100 ML IV PRN ×3 (01:10→18:19)
[2021-07-25 04:00] VITALS: BP 104/67
[2021-07-25] MEDS: DOXYCYCLINE HYCLATE 100 MG in DEXTROSE 5%-WATER 100 ML IV SCH (04:42)
[2021-07-25] MEDS: PIPERACILLIN/TAZO 3.375 GM/D5W 50 ML IV SCH ×3 (05:49→17:45)
[2021-07-25 07:58] LABS: ANION GAP 8 mmol/L (8-16); CALCIUM, TOTAL 7.3 mg/dL (8.8-10.5); CARBON DIOXIDE 24 mmol/L (22-29); CHLORIDE 107 mmol/L (98-107); CREATININE 0.74 mg/dL (0.60-1.30); GLOMERULAR FILTR. RATE CALC > 60 mL/min (>60); GLUCOSE,RANDOM 188 mg/dL (70-110); POTASSIUM 3.7 mmol/L (3.5-5.1); SODIUM SERUM 139 mmol/L (136-145); UREA NITROGEN, BLOOD 26 mg/dL (7-18)
[2021-07-25 08:00] VITALS: BP 153/82
[2021-07-25] MEDS: HEPARIN SODIUM,PORCINE 5,000 UNITS/ML VIAL SQ SCH ×2 (09:05→15:57)
[2021-07-25] MEDS: FAMOTIDINE 10 MG/ML 2 ML VIAL IVP SCH ×2 (09:06→20:39)
[2021-07-25] MEDS: DEXAMETHASONE SOD PHOS 4 MG/ML VIAL IVP SCH (09:07)
[2021-07-25] MEDS: LevETIRAcetam 500 MG in DEXTROSE 5%-WATER 100 ML IV SCH ×2 (09:09→20:41)
[2021-07-25] MEDS ORDERED: LORazepam 2 MG/ML VIAL IVP PRN (10:45)
[2021-07-25 12:00] VITALS: BP 105/71
[2021-07-25 16:00] VITALS: BP 105/69
[2021-07-25 20:00] VITALS: BP 116/74
[2021-07-25] MEDS: DIAZEPAM 5 MG/ML 2 ML SYRINGE IVP SCH (20:40)
[2021-07-26] VITALS: BP 118/77
[2021-07-26] MEDS: HEPARIN SODIUM,PORCINE 5,000 UNITS/ML VIAL SQ SCH ×3 (00:51→17:50)
[2021-07-26] MEDS: PIPERACILLIN/TAZO 3.375 GM/D5W 50 ML IV SCH ×4 (00:51→17:50)
[2021-07-26 04:00] VITALS: BP 119/71
[2021-07-26 08:27] VITALS: BP 130/65
[2021-07-26] MEDS: FAMOTIDINE 10 MG/ML 2 ML VIAL IVP SCH ×2 (10:09→20:17)
[2021-07-26] MEDS: DIAZEPAM 5 MG/ML 2 ML SYRINGE IVP SCH ×2 (10:09→20:17)
[2021-07-26] MEDS: LevETIRAcetam 500 MG in DEXTROSE 5%-WATER 100 ML IV SCH ×2 (10:10→20:17)
[2021-07-26 12:00] VITALS: BP 127/76
[2021-07-26 16:00] VITALS: BP 135/87
[2021-07-26] MEDS ORDERED: MAGNESIUM HYDROXIDE SUSPENSION 30 ML UDCUP PO PRN (18:00)
[2021-07-26 20:00] VITALS: BP 122/74
[2021-07-26] MEDS: DOCUSATE SODIUM 100 MG/10 ML LIQUID UDCUP NG SCH (20:17)
[2021-07-26] MEDS ORDERED: BISACODYL 10 MG RECTAL RECTAL SUPPOSITORY PR ONE (21:00)
[2021-07-27] VITALS: BP 122/74
[2021-07-27] MEDS: HEPARIN SODIUM,PORCINE 5,000 UNITS/ML VIAL SQ SCH ×3 (00:16→16:50)
[2021-07-27] MEDS: PIPERACILLIN/TAZO 3.375 GM/D5W 50 ML IV SCH ×4 (00:16→18:08)
[2021-07-27] MEDS: PROPOFOL 1000 MG/ISO-OSM 100 ML IV PRN ×2 (02:24→09:11)
[2021-07-27 04:00] VITALS: BP 114/78
[2021-07-27 08:00] VITALS: BP 118/82
[2021-07-27] MEDS: LevETIRAcetam 500 MG in DEXTROSE 5%-WATER 100 ML IV SCH ×2 (09:10→20:32)
[2021-07-27] MEDS: SENNA 187 MG TABLET PO SCH (09:11)
[2021-07-27] MEDS: DIAZEPAM 5 MG/ML 2 ML SYRINGE IVP SCH ×2 (09:11→20:33)
[2021-07-27] MEDS: FAMOTIDINE 10 MG/ML 2 ML VIAL IVP SCH ×2 (09:11→20:33)
[2021-07-27] MEDS ORDERED: SODIUM CHLORIDE 0.9% 250 ML IV ONE (09:14)
[2021-07-27 12:00] VITALS: BP 112/57
[2021-07-27 14:45] LABS: ABG CARBOXYHEMOGLOBIN 0.5 % (0.0-1.5); ABG HCO3 24.3 mmol/L (22.0-26.0); ABG METHEMOGLOBIN 0.3 % (0.0-1.5); ABG OXYGEN CONTENT 16.9 mL/dL (15.0-23.0); ABG OXYGEN SATURATION 98.7 % (95.0-98.0); ABG OXYHEMOGLOBIN 97.9 % (94.0-100.0); ABG PCO2 31 mmHg (35-45); ABG PH 7.476 (7.35-7.450); ABG TOTAL HEMOGLOBIN 12.1 G/dL (12.0-18.0); PO2, ARTERIAL BG 137.9 mmHg (79.0-87.0); SOURCE, BLOOD GAS ARTERIAL
[2021-07-27 14:46] LABS: O2 DEVICE,BLOOD GAS VENTILATOR (ROOM AIR); PEEP,BG 5 cm H2O; PRESSURE SUPPORT, BG 10 cm H2O; SITE, BLOOD GAS ARTERIAL LINE; SPONTANEOUS VT, BG 421 ml; VENT MODE, BG Press. Support Vent. (ROOM AIR)
[2021-07-27] MEDS ORDERED: SODIUM CHLORIDE 0.9% 500 ML IV ONE (15:42)
[2021-07-27 16:00] VITALS: BP 109/73
[2021-07-27 20:00] VITALS: BP 111/71
[2021-07-27] MEDS: DOCUSATE SODIUM 100 MG/10 ML LIQUID UDCUP NG SCH (20:33)
[2021-07-28] MEDS: HEPARIN SODIUM,PORCINE 5,000 UNITS/ML VIAL SQ SCH ×3 (00:36→16:00)
[2021-07-28] MEDS: PIPERACILLIN/TAZO 3.375 GM/D5W 50 ML IV SCH ×4 (00:36→18:21)
[2021-07-28 02:00] VITALS: BP 110/77
[2021-07-28] MEDS: PROPOFOL 1000 MG/ISO-OSM 100 ML IV PRN ×2 (03:12→12:40)
[2021-07-28 04:00] VITALS: BP 116/71
[2021-07-28 08:47] LABS: ANION GAP 8 mmol/L (8-16); CALCIUM, TOTAL 7.6 mg/dL (8.8-10.5); CARBON DIOXIDE 25 mmol/L (22-29); CHLORIDE 105 mmol/L (98-107); CREATININE 0.78 mg/dL (0.60-1.30); GLOMERULAR FILTR. RATE CALC > 60 mL/min (>60); GLUCOSE,RANDOM 119 mg/dL (70-110); POTASSIUM 3.4 mmol/L (3.5-5.1); SODIUM SERUM 138 mmol/L (136-145); UREA NITROGEN, BLOOD 22 mg/dL (7-18)
[2021-07-28] MEDS: FAMOTIDINE 10 MG/ML 2 ML VIAL IVP SCH ×2 (09:36→20:49)
[2021-07-28] MEDS: SENNA 187 MG TABLET PO SCH (09:37)
[2021-07-28] MEDS: DIAZEPAM 5 MG/ML 2 ML SYRINGE IVP SCH ×2 (09:37→20:49)
[2021-07-28] MEDS: LevETIRAcetam 500 MG in DEXTROSE 5%-WATER 100 ML IV SCH ×2 (09:38→20:49)
[2021-07-28] MEDS ORDERED: POTASSIUM CHLORIDE 20 MEQ ER TABLET PO PRN (10:45)
[2021-07-28] MEDS ORDERED: POTASSIUM CHL 10 MEQ/WATER 50 ML IV PRN (10:45)
[2021-07-28 20:00] VITALS: BP 100/139
[2021-07-28] MEDS: DOCUSATE SODIUM 100 MG/10 ML LIQUID UDCUP NG SCH (20:49)
[2021-07-29] VITALS: BP 135/60
[2021-07-29] MEDS: PROPOFOL 1000 MG/ISO-OSM 100 ML IV PRN ×2 (00:34→16:28)
[2021-07-29] MEDS: HEPARIN SODIUM,PORCINE 5,000 UNITS/ML VIAL SQ SCH ×4 (00:34→23:41)
[2021-07-29] MEDS: PIPERACILLIN/TAZO 3.375 GM/D5W 50 ML IV SCH ×5 (00:35→23:40)
[2021-07-29 06:13] LABS: ANION GAP 9 mmol/L (8-16); CALCIUM, TOTAL 7.5 mg/dL (8.8-10.5); CARBON DIOXIDE 25 mmol/L (22-29); CHLORIDE 105 mmol/L (98-107); CREATININE 0.69 mg/dL (0.60-1.30); GLOMERULAR FILTR. RATE CALC > 60 mL/min (>60); GLUCOSE,RANDOM 107 mg/dL (70-110); POTASSIUM 3.4 mmol/L (3.5-5.1); SODIUM SERUM 139 mmol/L (136-145); UREA NITROGEN, BLOOD 21 mg/dL (7-18)
[2021-07-29 06:33] VITALS: BP 138/62
[2021-07-29 08:00] VITALS: BP 122/50
[2021-07-29] MEDS: LevETIRAcetam 500 MG in DEXTROSE 5%-WATER 100 ML IV SCH ×2 (10:18→20:53)
[2021-07-29] MEDS: DIAZEPAM 5 MG/ML 2 ML SYRINGE IVP SCH ×2 (10:19→20:54)
[2021-07-29] MEDS: SENNA 187 MG TABLET PO SCH (10:20)
[2021-07-29] MEDS: POTASSIUM CHLORIDE 10% 40 MEQ/30 ML LIQUID UDCUP NG SCH (10:21)
[2021-07-29] MEDS: FAMOTIDINE 10 MG/ML 2 ML VIAL IVP SCH ×2 (10:21→20:53)
[2021-07-29 12:00] VITALS: BP 140/66
[2021-07-29 18:00] VITALS: BP 130/65
[2021-07-29 20:00] VITALS: BP 141/70
[2021-07-29] MEDS: DOCUSATE SODIUM 100 MG/10 ML LIQUID UDCUP NG SCH (22:27)
[2021-07-30] VITALS: BP 129/64
[2021-07-30 04:00] VITALS: BP 117/59
[2021-07-30] MEDS: PIPERACILLIN/TAZO 3.375 GM/D5W 50 ML IV SCH ×4 (05:47→23:37)
[2021-07-30 08:00] VITALS: BP 123/61
[2021-07-30] MEDS: LevETIRAcetam 500 MG in DEXTROSE 5%-WATER 100 ML IV SCH ×2 (09:30→21:33)
[2021-07-30] MEDS: FAMOTIDINE 10 MG/ML 2 ML VIAL IVP SCH ×2 (09:30→21:34)
[2021-07-30] MEDS: HEPARIN SODIUM,PORCINE 5,000 UNITS/ML VIAL SQ SCH ×3 (09:30→23:47)
[2021-07-30] MEDS: DIAZEPAM 5 MG/ML 2 ML SYRINGE IVP SCH ×2 (09:30→23:36)
[2021-07-30] MEDS: SENNA 187 MG TABLET PO SCH (09:31)
[2021-07-30 10:00] VITALS: BP 132/70
[2021-07-30] MEDS: POTASSIUM CHLORIDE 10% 40 MEQ/30 ML LIQUID UDCUP NG SCH (11:57)
[2021-07-30 12:00] VITALS: BP 140/80
[2021-07-30 16:00] VITALS: BP 117/60
[2021-07-30] MEDS: DOCUSATE SODIUM 100 MG/10 ML LIQUID UDCUP NG SCH (21:35)
[2021-07-31] MEDS ORDERED: SODIUM CHLORIDE 0.9% 250 ML IV ONE (01:57)
[2021-07-31] MEDS: PIPERACILLIN/TAZO 3.375 GM/D5W 50 ML IV SCH (05:03)
[2021-07-31 08:00] VITALS: BP 130/62
[2021-07-31] MEDS: FAMOTIDINE 10 MG/ML 2 ML VIAL IVP SCH ×2 (09:00→22:53)
[2021-07-31] MEDS: HEPARIN SODIUM,PORCINE 5,000 UNITS/ML VIAL SQ SCH ×2 (09:31→16:11)
[2021-07-31] MEDS: LevETIRAcetam 500 MG in DEXTROSE 5%-WATER 100 ML IV SCH ×2 (09:31→21:26)
[2021-07-31] MEDS: SENNA 187 MG TABLET PO SCH (09:32)
[2021-07-31] MEDS: POTASSIUM CHLORIDE 10% 40 MEQ/30 ML LIQUID UDCUP NG SCH (09:32)
[2021-07-31] MEDS: DIAZEPAM 5 MG/ML 2 ML SYRINGE IVP SCH ×2 (09:32→21:27)
[2021-07-31 12:00] VITALS: BP 125/60
[2021-07-31 16:00] VITALS: BP 123/58
[2021-07-31 20:00] VITALS: BP 135/63
[2021-07-31] MEDS: DOCUSATE SODIUM 100 MG/10 ML LIQUID UDCUP NG SCH (21:26)
[2021-08-01] VITALS: BP 144/68
[2021-08-01] MEDS: HEPARIN SODIUM,PORCINE 5,000 UNITS/ML VIAL SQ SCH ×4 (00:20→23:52)
[2021-08-01 04:00] VITALS: BP 148/68
[2021-08-01 06:06] LABS: BASOPHILS % (AUTO) 0.2 % (0.0-2.0); EOSINOPHILS % (AUTO) 0.4 % (1.0-6.0); HEMATOCRIT 27.5 % (41-53); HEMOGLOBIN 9.7 g/dL (13.5-17.5); LYMPHOCYTES # (AUTO) 0.9 K/uL (1.0-4.8); LYMPHOCYTES % (AUTO) 9.7 % (22.0-44.0); MEAN CORPUSCULAR HEMOGLOBIN 30.6 pg (26.0-34.0); MEAN CORPUSCULAR HGB CONC 35.2 G/dL (31.0-37.0); MEAN CORPUSCULAR VOLUME 87 fL (80-100); MONOCYTES # (AUTO) 1.2 K/uL (0.1-1.0); MONOCYTES % (AUTO) 13.1 % (2.0-9.0); NEUTROPHILS # (AUTO) 6.8 K/uL (1.8-7.7); NEUTROPHILS % (AUTO) 76.6 % (40.0-70.0); PLATELET COUNT (AUTO) 188 K/uL (150-450); RED BLOOD CELL COUNT(AUTO) 3.17 MIL/uL (4.50-5.90); RED CELL DISTRIBUTION WIDTH 14.3 % (11.5-14.5)
[2021-08-01 06:18] LABS: PROTHROMBIN TIME 10.9 SEC (9.4-11.6)
[2021-08-01 08:00] VITALS: BP 148/71
[2021-08-01] MEDS: DIAZEPAM 5 MG/ML 2 ML SYRINGE IVP SCH ×2 (08:26→21:42)
[2021-08-01] MEDS: SENNA 187 MG TABLET PO SCH (08:26)
[2021-08-01] MEDS: FAMOTIDINE 10 MG/ML 2 ML VIAL IVP SCH ×2 (08:30→21:41)
[2021-08-01] MEDS: LevETIRAcetam 500 MG in DEXTROSE 5%-WATER 100 ML IV SCH ×2 (09:19→21:41)
[2021-08-01 12:00] VITALS: BP 148/71
[2021-08-01] MEDS: PROPOFOL 1000 MG/ISO-OSM 100 ML IV PRN (12:01)
[2021-08-01] MEDS: FentaNYL CIT 1000MCG/0.9% NACL 100 ML IV PRN (12:02)
[2021-08-01] MEDS ORDERED: ROCURONIUM BROMIDE 10 MG/ML 5 ML VIAL IVP ONE ×2 (13:00→13:30)
[2021-08-01 16:00] VITALS: BP 133/64
[2021-08-01 20:00] VITALS: BP 141/66
[2021-08-01] MEDS: DOCUSATE SODIUM 100 MG/10 ML LIQUID UDCUP NG SCH (21:42)
[2021-08-02] VITALS: BP 144/66
[2021-08-02 04:00] VITALS: BP 146/73
[2021-08-02] MEDS ORDERED: SODIUM CHLORIDE 0.9% 250 ML IV ONE (05:49)
[2021-08-02] MEDS ORDERED: SODIUM CHLORIDE 0.9% 500 ML IV ONE (05:49)
[2021-08-02 08:00] VITALS: BP 146/70
[2021-08-02] MEDS: HEPARIN SODIUM,PORCINE 5,000 UNITS/ML VIAL SQ SCH (09:21)
[2021-08-02] MEDS: DIAZEPAM 5 MG/ML 2 ML SYRINGE IVP SCH ×2 (09:22→21:17)
[2021-08-02] MEDS: SENNA 187 MG TABLET PO SCH (09:22)
[2021-08-02] MEDS: FAMOTIDINE 10 MG/ML 2 ML VIAL IVP SCH ×2 (09:23→20:59)
[2021-08-02] MEDS: LevETIRAcetam 500 MG in DEXTROSE 5%-WATER 100 ML IV SCH ×2 (09:43→20:58)
[2021-08-02 12:00] VITALS: BP 146/70
[2021-08-02 16:00] VITALS: BP 137/67
[2021-08-02 20:00] VITALS: BP 144/59
[2021-08-02] MEDS: DOCUSATE SODIUM 100 MG/10 ML LIQUID UDCUP NG SCH (20:58)
[2021-08-03] VITALS (7 sets, daily range): BP systolic 129–155; BP diastolic 64–76
[2021-08-03] MEDS: SENNA 187 MG TABLET PO SCH (09:26)
[2021-08-03] MEDS: LevETIRAcetam 500 MG in DEXTROSE 5%-WATER 100 ML IV SCH ×2 (09:26→20:40)
[2021-08-03] MEDS: FAMOTIDINE 10 MG/ML 2 ML VIAL IVP SCH ×2 (09:27→20:40)
[2021-08-03] MEDS: DIAZEPAM 5 MG/ML 2 ML SYRINGE IVP SCH ×2 (09:28→20:40)
[2021-08-03] MEDS: ETHYL ALCOHOL 62% ANTISEPTIC NASAL INHALANT 0.6 ML AMPUL NASAL SCH ×2 (09:28→20:41)
[2021-08-03] MEDS: HEPARIN SODIUM,PORCINE 5,000 UNITS/ML VIAL SQ SCH ×4 (09:29→23:43)
[2021-08-03] MEDS: DOCUSATE SODIUM 100 MG/10 ML LIQUID UDCUP NG SCH (20:41)
[2021-08-04] VITALS: BP 133/66
[2021-08-04 04:00] VITALS: BP 122/61
[2021-08-04 04:31] LABS: GLUCOMETER DEV NAME(LOC) AHU.; GLUCOSE,POINT OF CARE 89 MG/DL (70-110)
[2021-08-04] MEDS ORDERED: SODIUM CHLORIDE 0.9% 1,000 ML ONE ×2 (07:06→07:20)
[2021-08-04 08:00] VITALS: BP 125/65
[2021-08-04] MEDS: LevETIRAcetam 500 MG in DEXTROSE 5%-WATER 100 ML IV SCH ×2 (10:00→20:40)
[2021-08-04] MEDS: HEPARIN SODIUM,PORCINE 5,000 UNITS/ML VIAL SQ SCH (10:03)
[2021-08-04] MEDS: DIAZEPAM 5 MG/ML 2 ML SYRINGE IVP SCH ×2 (10:04→20:41)
[2021-08-04] MEDS: FAMOTIDINE 10 MG/ML 2 ML VIAL IVP SCH ×2 (10:04→20:41)
[2021-08-04] MEDS: ETHYL ALCOHOL 62% ANTISEPTIC NASAL INHALANT 0.6 ML AMPUL NASAL SCH ×2 (10:05→20:41)
[2021-08-04 12:00] VITALS: BP 125/65
[2021-08-04] MEDS: SENNA 187 MG TABLET PO SCH (14:23)
[2021-08-04 16:00] VITALS: BP 128/70
[2021-08-04 20:00] VITALS: BP 123/93
[2021-08-04] MEDS: DOCUSATE SODIUM 100 MG/10 ML LIQUID UDCUP NG SCH (20:41)
[2021-08-05] VITALS: BP 110/55
[2021-08-05] MEDS: HEPARIN SODIUM,PORCINE 5,000 UNITS/ML VIAL SQ SCH ×3 (01:37→16:07)
[2021-08-05 04:00] VITALS: BP 115/68
[2021-08-05] MEDS ORDERED: PROPOFOL 1% 20 ML VIAL IVP ONE (06:33)
[2021-08-05 08:00] VITALS: BP 113/62
[2021-08-05] MEDS: SENNA 187 MG TABLET PO SCH (08:18)
[2021-08-05] MEDS: DIAZEPAM 5 MG/ML 2 ML SYRINGE IVP SCH (08:19)
[2021-08-05] MEDS: ETHYL ALCOHOL 62% ANTISEPTIC NASAL INHALANT 0.6 ML AMPUL NASAL SCH (08:19)
[2021-08-05] MEDS: LevETIRAcetam 500 MG in DEXTROSE 5%-WATER 100 ML IV SCH (08:19)
[2021-08-05 12:00] VITALS: BP 107/47
[2021-08-05 15:17] LABS: COVID AG,FIA SOURCE NASOPHARYNGEAL
[2021-08-05 17:10] VITALS: BP 108/51
[2021-08-06] MEDS ORDERED: LIDOCAINE 4% 50 ML SOLUTION ONE (18:15)
== END 2021-08-05 18:00 | DRG 4 ==
LOC: EMS 14:05 → ICU 07-17 13:30 → ICUN 07-30 09:20
PROVIDERS: ADMIT Internal Medicine; ATTEND Internal Medicine
PROC: 5A1955Z Respiratory Ventilation, Greater than 96 Consecutive Hours (ICD-10-PCS; 2021-07-17)
PROC: 0BH17EZ Insertion of Endotracheal Airway into Trachea, Via Natural or Artificial Opening (ICD-10-PCS; 2021-07-17)
PROC: XW033E5 Introduction of Remdesivir Anti-infective into Peripheral Vein, Percutaneous Approach, New Technology Group 5 (ICD-10-PCS; 2021-07-17)
PROC: 0B113F4 Bypass Trachea to Cutaneous with Tracheostomy Device, Percutaneous Approach (ICD-10-PCS; 2021-08-01)
PROC: 5A1945Z Respiratory Ventilation, 24-96 Consecutive Hours (ICD-10-PCS; 2021-08-03)
PROC: 0BJ08ZZ Inspection of Tracheobronchial Tree, Via Natural or Artificial Opening Endoscopic (ICD-10-PCS; 2021-08-04)
PROC: 0DH63UZ Insertion of Feeding Device into Stomach, Percutaneous Approach (ICD-10-PCS; principal; 2021-08-04 08:00)
DX: A41.89 Other specified sepsis (principal); J12.82 Pneumonia due to coronavirus disease 2019; J96.01 Acute respiratory failure with hypoxia; U07.1 COVID-19; R65.21 Severe sepsis with septic shock; I46.9 Cardiac arrest, cause unspecified; E43 Unspecified severe protein-calorie malnutrition; E87.4 Mixed disorder of acid-base balance; J44.0 Chronic obstructive pulmonary disease with (acute) lower respiratory infection; N17.9 Acute kidney failure, unspecified; J98.11 Atelectasis; J90 Pleural effusion, not elsewhere classified; E87.0 Hyperosmolality and hypernatremia; G93.1 Anoxic brain damage, not elsewhere classified; I47.1 Supraventricular tachycardia; Z99.11 Dependence on respirator [ventilator] status; F17.210 Nicotine dependence, cigarettes, uncomplicated; Z53.29 Procedure and treatment not carried out because of patient's decision for other reasons; G25.3 Myoclonus; R56.9 Unspecified convulsions; Z66 Do not resuscitate; I10 Essential (primary) hypertension; K29.70 Gastritis, unspecified, without bleeding; R13.10 Dysphagia, unspecified; Z51.5 Encounter for palliative care; Z91.19 Patient's noncompliance with other medical treatment and regimen; Z78.9 Other specified health status; Z78.1 Physical restraint status
CPT/HCPCS: 31623; 31624; 36600; 70450; 71045; 76770; 80048; 80053; 81001; 81002; 82465; 82550; 82570; 82728; 82805; 82945; 82962; 83605; 83615; 83735; 83880; 83986; 84100; 84145; 84157; 84300; 84484; 84540; 85025; 85379; 85610; 85730; 86140; 87015; 87040; 87070; 87075; 87081; 87086; 87101; 87205; 87206; 87220; 87804; 88112; 88312; 89051; 93005; 94002; 94003; 99291; G0238; G0378; G0480; J0153; J0171; J0456; J0696; J0712; J1100; J1644; J2060; J2250; J2543; J2704; J2930; J3490; J7030; J7040; J7042; J7050; J7060; Q9967; 36415-L1; 36415-TC; J7611; U0003; Z7610